=== PATIENT | male | born 1995 | race Hispanic/Latino ===

== ENCOUNTER 2020-06-09 12:10 | Emergency (ER) | payer OTHER ==
[2020-06-09] MEDS ORDERED: HYDROCODONE/CHLORPHEN 5 ML/OSYR ONE (13:59)
[2020-06-09] MEDS ORDERED: ACETAMINOPHEN 500 MG TAB ONE (13:59)
--- NOTE | 2020-06-09 15:10 | ER ---
Nurse's Notes [facility] Name: Niels Butts Age: 24 yrs Sex: Male : 1995 Arrival Date: 06/09/2020 Time: 12:11 Bed 8 Private MD: Diagnosis: Streptococcal pharyngitis Presentation: 06/09 12:33 Chief complaint: Patient states: Slight cough for 3 days. Congestion. body aches since ll1 yesterday. No fever at home. Coronavirus screen: Client denies travel out of the [place] in the last 14 days. congestion, cough unrelated to allergies, difficulty breathing, fatigue, muscle pain, runny nose, sore throat, Client presents with at least one sign or symptom that may indicate coronavirus-19. Standard/surgical mask placed on the client. Ebola Screen: Patient denies travel to an Ebola-affected area in the 21 days before illness onset. Risk Assessment: Do you want to hurt yourself or someone else? Patient reports no desire to harm self or others. Onset of symptoms was June 07, 2020. 12:33 Method Of Arrival: Ambulatory ll1 12:33 Acuity: KATELYNN 3 ll1 14:44 Initial Sepsis Screen: Does the patient meet any 2 criteria? No. Patient's initial hb sepsis screen is negative. Does the patient have a suspected source of infection? No. Patient's initial sepsis screen is negative. Historical: - Allergies: 12:32 No Known Allergies; ll1 - PMHx: 12:32 Asthma; ll1 - PSHx: 12:32 None; ll1 - Immunization history:: Flu vaccine is up to date. - Social history:: Smoking status: Patient/guardian denies using tobacco, Patient uses alcohol, only on a social basis. Patient/guardian denies using street drugs. Screenin:15 Abuse screen: Denies threats or abuse. Denies injuries from another. Nutritional hb screening: No deficits noted. Tuberculosis screening: No symptoms or risk factors identified. Fall Risk None identified. Assessment: 14:00 General: Appears in no apparent distress. Behavior is calm, cooperative. Pain: Pain hb currently is 3 out of 10 on a pain scale. Neuro: Level of Consciousness is awake, alert, obeys commands, Oriented to person, place, time, situation. Cardiovascular: Capillary refill < 3 seconds Patient's skin is warm and dry. Respiratory: Respiratory effort is even, unlabored, Respiratory pattern is regular, symmetrical. GI: No signs and/or symptoms were reported involving the gastrointestinal system. : No signs and/or symptoms were reported regarding the genitourinary system. EENT: No signs and/or symptoms were reported regarding the EENT system. Derm: Skin is pink, warm \T\ dry. Musculoskeletal: No signs and/or symptoms reported regarding the musculoskeletal system. 15:00 Reassessment: Patient appears in no apparent distress at this time. Patient and/or hb family updated on plan of care and expected duration. Pain level reassessed. Patient is alert, oriented x 3, equal unlabored respirations, skin warm/dry/pink. Vital Signs: 12:33 BP 135 / 89; Pulse 97; Resp 18; Temp 100.2; Pulse Ox 98% ; Weight 124.74 kg; Height 5 ll1 ft. 9 in. (175.26 cm); Pain 3/10; 15:00 BP 132 / 82; Pulse 92; Resp 17; Pulse Ox 99% on R/A; hb 12:33 Body Mass Index 40.61 (124.74 kg, 175.26 cm) ll1 ED Course: 12:11 Patient arrived in ED. fj1 12:32 Arm band placed on Patient notified of wait time. ll1 12:36 Triage completed. ll1 13:03 Clay Valencia NP is PHCP. pm1 13:03 Pratima Medina MD is Attending Physician. pm1 13:43 Catia Bae, IRINA is Primary Nurse. hb 14:02 CXR XRAY Sent. hb 14:15 Patient has correct armband on for positive identification. Bed in low position. Call hb light in reach. Side rails up X 1. 14:15 No provider procedures requiring assistance completed. Patient did not have IV access hb during this emergency room visit. 14:41 CXR XRAY In Process Unspecified. EDMS Administered Medications: 13:54 Drug: Tussionex Pennkinetic ER 5 ml Route: PO; hb 14:44 Follow up: Response: No adverse reaction hb 13:55 Drug: Tylenol 1000 mg Route: PO; hb 14:44 Follow up: Response: No adverse reaction hb 15:33 Drug: Rocephin (cefTRIAXone) 1 grams Route: IM; Site: right deltoid; hb 15:48 Follow up: Response: No adverse reaction hb 15:33 Drug: AZITHromycin 500 mg Route: PO; hb 15:49 Follow up: Response: No adverse reaction hb Outcome: 15:10 Discharge ordered by . pm1 15:48 Discharged to home ambulatory. hb 15:48 Condition: stable 15:48 Discharge instructions given to patient, Instructed on discharge instructions, follow up and referral plans. medication usage, Demonstrated understanding of instructions, follow-up care, medications, Prescriptions given X 2. 15:49 Patient left the ED. hb Signatures: Dispatcher [employer] EDMS Clay Valencia NP GREETING CARD WRITER pm1 Catia Bae RN RN Tin Parrish fj1 Ethan Tom RN RN ll1
--- NOTE | 2020-06-09 15:10 | EDPHYS ---
Physician Documentation [facility] Name: Niels Butts Age: 24 yrs Sex: Male : 1995 Arrival Date: 06/09/2020 Time: 12:11 Bed 8 Private MD: ED Physician Pratima Medina HPI: 06/09 13:32 This 24 yrs old Male presents to ER via Ambulatory with complaints of pm1 Productive Cough, BODY ACHES, Congestion. 13:32 The patient or guardian reports cough, with productive sputum. Onset: The pm1 symptoms/episode began/occurred 3 day(s) ago. Severity of symptoms: in the emergency department the symptoms are actually worse, body aches and sputum onset yesterday. Modifying factors: The symptoms are alleviated by nothing, the symptoms are aggravated by nothing. Associated signs and symptoms: Pertinent positives: chest pain, with cough, Pertinent negatives: diarrhea, fever, sore throat, vomiting. The patient has not experienced similar symptoms in the past. 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 COVID swab performed on him by employer today. Historical: - Allergies: 12:32 No Known Allergies; ll1 - PMHx: 12:32 Asthma; ll1 - PSHx: 12:32 None; ll1 - Immunization history:: Flu vaccine is up to date. - Social history:: Smoking status: Patient/guardian denies using tobacco, Patient uses alcohol, only on a social basis. Patient/guardian denies using street drugs. ROS: 13:32 Cardiovascular: Negative for chest pain, palpitations, and edema. pm1 13:32 Abdomen/GI: Negative for abdominal pain, nausea, vomiting, diarrhea, and constipation, Back: Negative for injury and pain, MS/Extremity: Negative for injury and deformity, Skin: Negative for injury, rash, and discoloration. 13:32 Neuro: Negative for headache, weakness, numbness, tingling, and seizure. 13:32 Constitutional: Positive for body aches, Negative for fever, poor PO intake. 13:32 Respiratory: Positive for cough, Negative for shortness of breath, wheezing. Exam: 13:32 Constitutional: This is a well developed, well nourished patient who is awake, alert, pm1 and in no acute distress. Head/Face: Normocephalic, atraumatic. Eyes: Pupils equal round and reactive to light, extra-ocular motions intact. Lids and lashes normal. Conjunctiva and sclera are non-icteric and not injected. Cornea within normal limits. Periorbital areas with no swelling, redness, or edema. ENT: Nares patent. No nasal discharge, no septal abnormalities noted. Tympanic membranes are normal and external auditory canals are clear. Oropharynx with no redness, swelling, or masses, exudates, or evidence of obstruction, uvula midline. Mucous membranes moist. 13:32 Skin: Warm, dry with normal turgor. Normal color with no rashes, no lesions, and no evidence of cellulitis. MS/ Extremity: Pulses equal, no cyanosis. Neurovascular intact. Full, normal range of motion. 13:32 Cardiovascular: Exam negative for acute changes, Rate: normal, Rhythm: regular, Pulses: no pulse deficits are appreciated. 13:32 Respiratory: Exam negative for acute changes, respiratory distress, shortness of breath, wheezing. 13:32 Neuro: Exam negative for acute changes, Orientation: is normal, Mentation: is normal, Motor: is normal, moves all fours, Gait: is steady, at a normal pace, without difficulty. Vital Signs: 12:33 BP 135 / 89; Pulse 97; Resp 18; Temp 100.2; Pulse Ox 98% ; Weight 124.74 kg; Height 5 ll1 ft. 9 in. (175.26 cm); Pain 3/10; 15:00 BP 132 / 82; Pulse 92; Resp 17; Pulse Ox 99% on R/A; hb 12:33 Body Mass Index 40.61 (124.74 kg, 175.26 cm) ll1 MDM: 13:03 Patient medically screened. pm1 14:38 ED course: Patient offered bicillin LA. Patient refused, he would prefer amoxicillin PO.pm1 15:03 Data reviewed: vital signs. Data interpreted: Pulse oximetry: on room air is 98 %. pm1 Interpretation: normal. Counseling: I had a detailed discussion with the patient and/or guardian regarding: the historical points, exam findings, and any diagnostic results supporting the discharge/admit diagnosis, lab results, radiology results, the need for outpatient follow up, to return to the emergency department if symptoms worsen or persist or if there are any questions or concerns that arise at home. 06/09 13:11 Order name: Flu; Complete Time: 14:48 pm1 06/09 13:11 Order name: Strep; Complete Time: 14:35 pm1 06/09 13:11 Order name: CXR XRAY; Complete Time: 15:17 pm1 06/09 13:11 Order name: Droplet/Contact Precautions; Complete Time: 14:02 pm1 06/09 13:11 Order name: Labs collected and sent; Complete Time: 14:02 pm1 06/09 13:11 Order name: O2 Per Protocol; Complete Time: 14:02 pm1 Administered Medications: 13:54 Drug: Tussionex Pennkinetic ER 5 ml Route: PO; hb 14:44 Follow up: Response: No adverse reaction hb 13:55 Drug: Tylenol 1000 mg Route: PO; hb 14:44 Follow up: Response: No adverse reaction hb 15:33 Drug: Rocephin (cefTRIAXone) 1 grams Route: IM; Site: right deltoid; hb 15:48 Follow up: Response: No adverse reaction hb 15:33 Drug: AZITHromycin 500 mg Route: PO; hb 15:49 Follow up: Response: No adverse reaction hb Disposition: 17:52 Co-signature as Attending Physician, Pratima Medina MD. ma2 Disposition: 06/09/20 15:10 Discharged to Home. Impression: Streptococcal pharyngitis. - Condition is Stable. - Discharge Instructions: Strep Throat. - Prescriptions for Tessalon Perles 100 mg Oral Capsule - take 1 capsule by ORAL route every 8 hours As needed; 15 capsule. Zithromax Z- Tyrese 250 mg Oral Tablet - take 1 tablet by ORAL route as directed for 5 days Day 1 - take two (2) tablets one time. Day 2, 3, 4 , 5 take one (1) tablet once daily.; 6 tablet. - Medication Reconciliation Form, Thank You Letter, Antibiotic Education, Prescription Opioid Use form. - Follow up: Emergency Department; When: As needed; Reason: Worsening of condition. Follow up: Private Physician; When: 2 - 3 days; Reason: Recheck today's complaints, Continuance of care, Re-evaluation by your physician. - Problem is new. - Symptoms have improved. Signatures: Dispatcher [employer] EDClay Rosas, GENERAL WAREHOUSE ASSOCIATE GENERAL WAREHOUSE ASSOCIATE pm1 Catia Bae RN RN hb Pratima Medina MD MD ma2 Ethan Tom RN RN ll1 Corrections: (The following items were deleted from the chart) 15:49 15:10 06/09/2020 15:10 Discharged to Home. Impression: Streptococcal pharyngitis. hb Condition is Stable. Forms are Medication Reconciliation Form, Thank You Letter, Antibiotic Education, Prescription Opioid Use. Follow up: Emergency Department; When: As needed; Reason: Worsening of condition. Follow up: Private Physician; When: 2 - 3 days; Reason: Recheck today's complaints, Continuance of care, Re-evaluation by your physician. Problem is new. Symptoms have improved. pm1
--- NOTE | 2020-06-09 15:17 | RAD REPORT ---
EXAM DESCRIPTION: Juju Single View06/09/2020 2:41 pm CLINICAL HISTORY: cough COMPARISON: 2010 FINDINGS: Right base is mildly hazy Left lung appears clear The heart is normal size IMPRESSION: Right base is mildly hazy which may indicate a mild pneumonia
[2020-06-09] MEDS ORDERED: AZITHROMYCIN 250 MG TAB ONE (15:36)
[2020-06-09] MEDS ORDERED: CEFTRIAXONE 1000 MG/VIAL ONE (15:36)
[2020-06-09] MEDS ORDERED: LIDOCAINE 1% MPF 2 ML AMPULE ONE (15:36)
[2020-06-09 15:55] VITALS: BP 135/89; TEMP 100.2; O2SAT 98
== END 2020-06-09 15:49 | disposition home or self-care (01) ==
LOC: ER 12:10
DX: J02.0 Streptococcal pharyngitis (principal)
CPT/HCPCS: 87081; 87804 ×2; 71045; J2001; 96372; 99283

== ENCOUNTER → 2021-05-01 | Emergency (ER) | payer OTHER | LOC: ER 06:19 | DX: S43.402A Unspecified sprain of left shoulder joint, initial encounter (principal) ==

== ENCOUNTER 2022-03-17 19:35 | Emergency (ER) | payer OTHER ==
--- OUTSIDE RECORDS SUMMARY | 2022-03-17 19:37 | XMS REPORT | Continuity of Care Document ---
:1995 Author Organization [facility] t Address [address] [place] [address] Dr. Krishna [address] [place] [id number] Care Team Providers Name Role Phone Manuel Attending Clinician Unavailable Problems This patient has no known problems. Allergies, Adverse Reactions, Alerts This patient has no known allergies or adverse reactions. Medications This patient has no known medications. Procedures This patient has no known procedures. Encounters Start End Encounter Admission Attending Care Care Encounter Source Date/Time Date/Time Type Type Clinicians Facility Department ID 2021-12-[address] [facility] [id number] NPI:[id number] Lizbeth [id number] Results This patient has no known results.
[2022-03-17] MEDS ORDERED: predniSONE 20 MG TAB ONE (20:40)
[2022-03-17] MEDS ORDERED: HYDROCODONE/CHLORPHEN 5 ML/OSYR ONE (20:40)
[2022-03-17] MEDS ORDERED: LEVALBUTEROL 1.25 MG/3 ML NEB ONE (20:41)
--- NOTE | 2022-03-17 21:11 | RAD REPORT ---
EXAM DESCRIPTION: RAD - Chest Pa And Lat (2 Views) - 03/17/2022 8:40 pm CLINICAL HISTORY: COUGH Chest pain. COMPARISON: Chest Single View dated 06/09/2020; CHEST PA AND LAT 2 VIEW dated 01/26/2011; CHEST PA AND LAT 2 VIEW dated 08/05/2010; CHEST PA AND LAT 2 VIEW dated 01/02/2009 FINDINGS: The lungs are clear. The heart is normal in size. No displaced fractures. IMPRESSION: No acute or concerning finding suspected.
--- NOTE | 2022-03-17 21:48 | EDPHYS ---
Physician Documentation [facility] Name: Niels Butts Age: 26 yrs Sex: Male : 1995 Arrival Date: 03/17/2022 Time: 19:37 Bed 13 Private MD: ED Physician Burke Bunch HPI: 03/17 21:24 This 26 yrs old Male presents to ER via Ambulatory with complaints of Cough. rn 21:24 The patient or guardian reports cough, described as moderate, with productive sputum. rn Onset: The symptoms/episode began/occurred 2 day(s) ago. Severity of symptoms: At their worst the symptoms were moderate, in the emergency department the symptoms are unchanged. Modifying factors: The symptoms are alleviated by nebulizer treatment, the symptoms are aggravated by nothing. Associated signs and symptoms: Pertinent negatives: chest pain, fever. The patient has experienced similar episodes in the past. The patient has not recently seen a physician. Historical: - Allergies: 20:06 No Known Allergies; bb - Home Meds: 20:06 Albuterol Nebulizer [Active]; bb - PMHx: 20:06 Asthma; bb - PSHx: 20:06 None; bb - Immunization history:: Pfizer x 3. - Social history:: Smoking status: Patient denies any tobacco usage or history of. - Family history:: not pertinent. - Hospitalizations: : No recent hospitalization is reported. ROS: 21:24 Constitutional: Negative for fever, chills, and weight loss, Eyes: Negative for injury, rn pain, redness, and discharge, Neck: Negative for injury, pain, and swelling, Cardiovascular: Negative for chest pain, palpitations, and edema, Respiratory: + cough and wheezing Abdomen/GI: Negative for abdominal pain, nausea, vomiting, diarrhea, and constipation, Back: Negative for injury and pain, : Negative for injury, bleeding, discharge, and swelling, MS/Extremity: Negative for injury and deformity, Skin: Negative for injury, rash, and discoloration, Neuro: Negative for headache, weakness, numbness, tingling, and seizure. Exam: 21:24 Constitutional: This is a well developed, well nourished patient who is awake, alert, rn and in no acute distress. Persistent coughing, unable to complete full sentence Head/Face: Normocephalic, atraumatic. ENT: No stridor Cardiovascular: Regular rate and rhythm. No pulse deficits. Respiratory: Audible wheezing, no retractions. No increased work of breathing, no retractions or nasal flaring. Abdomen/GI: Soft, non-tender Skin: Warm, dry with normal turgor. Normal color with no rashes, no lesions, and no evidence of cellulitis. MS/ Extremity: Pulses equal, no cyanosis. Neurovascular intact. Full, normal range of motion. Equal circumference. Neuro: Awake and alert, GCS 15 Vital Signs: 20:00 BP 118 / 80; Pulse 91; Resp 20; Pulse Ox 95% on R/A; Pain 0/10; sue 20:04 BP 104 / 71; Pulse 94; Resp 18 S; Temp 98.3(O); Pulse Ox 95% on R/A; Weight 151.95 kg bb (R); Height 5 ft. 0 in. (152.40 cm) (R); Pain 4/10; 21:05 BP 127 / 81; Pulse 78; Resp 16; Pulse Ox 97% on R/A; sue 22:06 BP 117 / 52; Pulse 83; Resp 18; Pulse Ox 99% on R/A; Pain 0/10; sue 20:04 Body Mass Index 65.42 (151.95 kg, 152.40 cm) bb MDM: 20:00 Patient medically screened. rn 21:46 Differential Diagnosis: Bronchitis Upper Respiratory Infection Asthma Exacerbation rn Viral Syndrome Pneumonia. Data reviewed: vital signs, nurses notes, radiologic studies, plain films, and as a result, I will discharge patient. Counseling: I had a detailed discussion with the patient and/or guardian regarding: the historical points, exam findings, and any diagnostic results supporting the discharge/admit diagnosis, radiology results, the need for outpatient follow up, to return to the emergency department if symptoms worsen or persist or if there are any questions or concerns that arise at home. Response to treatment: the patient's symptoms have markedly improved after treatment, and as a result, I will discharge patient. Special discussion: I discussed with the patient/guardian in detail that at this point there is no indication for admission to the hospital. It is understood, however, that if the symptoms persist or worsen the patient needs to return immediately for re-evaluation. ED course: Pt states tested neg for COVID day after symptoms started. . 03/17 20:09 Order name: XRAY Chest Pa And Lat (2 Views); Complete Time: 21:17 rn Administered Medications: 20:51 Drug: predniSONE 60 mg Route: PO; sue 22:05 Follow up: Response: No adverse reaction sue 20:51 Drug: Tussionex Pennkinetic ER (chlorpheniramine-hydrocodone) Suspension 5 ml Route: PO;sue 22:06 Follow up: Response: No adverse reaction sue 20:52 Drug: Xopenex (levalbuterol) 1.25 mg Route: Inhalation; sue 22:05 Follow up: Response: No adverse reaction sue 22:05 Drug: Zithromax (azithromycin) 500 mg Route: PO; sue 22:06 Follow up: Response: No adverse reaction sue Disposition Summary: 03/17/22 21:47 Discharge Ordered Location: Home rn Problem: new rn Symptoms: have improved rn Condition: Stable rn Diagnosis - Unspecified asthma with (acute) exacerbation rn - Cough rn Followup: rn - With: Private Physician - When: As needed - Reason: Recheck today's complaints, Re-evaluation by your physician Discharge Instructions: - Discharge Summary Sheet rn - Asthma, Adult rn - Cough, Adult rn Forms: - Medication Reconciliation Form rn - Thank You Letter rn - Antibiotic e learning coordinator - Prescription Opioid Use rn - Work release form [id number] Prescriptions: - Prednisone 20 mg Oral Tablet - take 3 tablets by ORAL route once daily for 5 days; 15 tablet; Refills: 0, rn Product Selection Permitted - Zithromax Z-Tyrese 250 mg Oral Tablet - take 1 tablet by ORAL route as directed for 5 days Day 1 - take two (2) tablets rn one time. Day 2, 3, 4 , 5 take one (1) tablet once daily.; 6 tablet; Refills: 0, Product Selection Permitted Signatures: Dispatcher [employer] Carissa Rocha RN RN bb Nieto, Roman, MD MD rn O'Farrell, Brenda, RN RN bo
--- NOTE | 2022-03-17 21:48 | ER ---
Nurse's Notes [facility] Name: Niels Butts Age: 26 yrs Sex: Male : 1995 Arrival Date: 03/17/2022 Time: 19:37 Bed 13 Private MD: Diagnosis: Unspecified asthma with (acute) exacerbation;Cough Presentation: 03/17 20:04 Chief complaint: Patient states: he has a runny nose and congestion and started bb coughing 2 days ago the coughing is getting worse he has hx of asthma but states "this feels different" pt used albuterol neb at home. Coronavirus screen: congestion, cough unrelated to allergies, runny nose, Client presents with at least one sign or symptom that may indicate coronavirus-19. Standard/surgical mask placed on the client. Ebola Screen: No symptoms or risks identified at this time. Initial Sepsis Screen: Does the patient meet any 2 criteria? No. Patient's initial sepsis screen is negative. Does the patient have a suspected source of infection? No. Patient's initial sepsis screen is negative. Risk Assessment: Do you want to hurt yourself or someone else? Patient reports no desire to harm self or others. Onset of symptoms was March 15, 2022. 20:04 Method Of Arrival: Ambulatory bb 20:04 Acuity: KATELYNN 3 bb Triage Assessment: 20:53 General: Appears in no apparent distress. Behavior is calm, cooperative. sue 20:54 Pain: Denies pain. sue Historical: - Allergies: 20:06 No Known Allergies; bb - Home Meds: 20:06 Albuterol Nebulizer [Active]; bb - PMHx: 20:06 Asthma; bb - PSHx: 20:06 None; bb - Immunization history:: Pfizer x 3. - Social history:: Smoking status: Patient denies any tobacco usage or history of. - Family history:: not pertinent. - Hospitalizations: : No recent hospitalization is reported. Screenin:53 Abuse screen: Denies threats or abuse. Denies injuries from another. Nutritional sue screening: No deficits noted. Tuberculosis screening: No symptoms or risk factors identified. Fall Risk None identified. Assessment: 20:40 Reassessment: Pt taken, via wc, to x-ray. sue Vital Signs: 20:00 BP 118 / 80; Pulse 91; Resp 20; Pulse Ox 95% on R/A; Pain 0/10; sue 20:04 BP 104 / 71; Pulse 94; Resp 18 S; Temp 98.3(O); Pulse Ox 95% on R/A; Weight 151.95 kg bb (R); Height 5 ft. 0 in. (152.40 cm) (R); Pain 4/10; 21:05 BP 127 / 81; Pulse 78; Resp 16; Pulse Ox 97% on R/A; sue 22:06 BP 117 / 52; Pulse 83; Resp 18; Pulse Ox 99% on R/A; Pain 0/10; sue 20:04 Body Mass Index 65.42 (151.95 kg, 152.40 cm) bb ED Course: 19:37 Patient arrived in ED. bp1 19:56 Carissa Brennan, RN is Primary Nurse. sue 20:00 Burke Bunch MD is Attending Physician. rn 20:06 Triage completed. bb 20:06 Arm band placed on Patient placed in an exam room, on a stretcher, on pulse oximetry. bb 20:42 XRAY Chest Pa And Lat (2 Views) In Process Unspecified. EDMS 20:53 No provider procedures requiring assistance completed. sue 20:54 Bed in low position. Call light in reach. Pulse ox on. NIBP on. sue 22:13 Patient did not have IV access during this emergency room visit. sue Administered Medications: 20:51 Drug: predniSONE 60 mg Route: PO; sue 22:05 Follow up: Response: No adverse reaction sue 20:51 Drug: Tussionex Pennkinetic ER (chlorpheniramine-hydrocodone) Suspension 5 ml Route: PO;sue 22:06 Follow up: Response: No adverse reaction sue 20:52 Drug: Xopenex (levalbuterol) 1.25 mg Route: Inhalation; sue 22:05 Follow up: Response: No adverse reaction sue 22:05 Drug: Zithromax (azithromycin) 500 mg Route: PO; sue 22:06 Follow up: Response: No adverse reaction sue Outcome: 20:54 Condition: stable sue 21:47 Discharge ordered by . rn 22:13 Discharged to home ambulatory. sue 22:13 Discharge instructions given to patient, Instructed on discharge instructions, follow up and referral plans. medication usage, Demonstrated understanding of instructions, follow-up care, medications, Prescriptions given X 2. 22:13 Patient left the ED. sue Signatures: Dispatcher [employer] EDMS Carissa Williamson, Burke Norris RN, MD MD rn [place]ia[place], Brittany bp1 O'Farrell, Brenda, IRINA rogers
[2022-03-17] MEDS ORDERED: AZITHROMYCIN 250 MG TAB ONE (22:04)
[2022-03-17 23:23] VITALS: TEMP 98.3
[2022-03-17 23:25] VITALS: BP 117/52; O2SAT 99
== END 2022-03-17 22:13 | disposition home or self-care (01) ==
LOC: ER 19:35
DX: J45.901 Unspecified asthma with (acute) exacerbation (principal)
CPT/HCPCS: 71046; 99284; J7512

== ENCOUNTER → 2024-01-01 | Emergency (ER) | payer OTHER ==
[~2024-01-01] MED LIST: ACETAMINOPHEN 500 MG TAB ONE; TDAP (DIPHTH,PERTUSS(ACELL),TET VAC) 0.5 ML VIAL IMVAC ONE
--- OUTSIDE RECORDS SUMMARY | 2024-01-01 15:50 | XMS REPORT | Continuity of Care Document ---
Author Name Unknown Address [address] [place] [address] [employer] Address [address] [place] [address]. [address] [place] [address] Care Team Providers Care Rug Underlay Machine Operator Name Role Phone Lizbeth Jackson Attending Clinician Unavailable Encounters Start Date/Time End Date/Time Encounter Type Admission Type Attending Clinicians Care Facility Care Department Encounter ID Source 2021-12-03 11:26:48 Outpatient Lizbeth Jackson [facility] [id number] [facility]
--- NOTE | 2024-01-01 16:54 | ER ---
Nurse's Notes [facility] Name: Niels Butts Age: 28 yrs Sex: Male : 1995 Arrival Date: 01/01/2024 Time: 15:47 Bed 19 Private MD: Diagnosis: Left thumb avulsion laceration Presentation: 01/01 16:00 Chief complaint: Patient states: laceration to thumb on left hand. pt states that he cm10 cut his knife with a board slicer. Tetanus shot was 9 years ago. Coronavirus screen: Vaccine status: Patient reports receiving the 2nd dose of the covid vaccine. Client denies travel out of the [place] in the last 14 days. Ebola Screen: Patient denies travel to an Ebola-affected area in the 21 days before illness onset. No symptoms or risks identified at this time. Initial Sepsis Screen: Does the patient meet any 2 criteria? Does the patient have a suspected source of infection? No. Patient's initial sepsis screen is negative. Risk Assessment: Do you want to hurt yourself or someone else? Patient reports no desire to harm self or others. Onset of symptoms was January 01, 2024. 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 - Social history:: Smoking status: Patient denies any tobacco usage or history of. Screenin:42 [facility] ED Fall Risk Assessment (Adult) History of falling in the last 3 months, kc6 including since admission No falls in past 3 months (0 pts) Confusion or Disorientation No (0 pts) Intoxicated or Sedated No (0 pts) Impaired Gait No (0 pts) Mobility Assist Device Used No (0 pt) Altered Elimination No (0 pt) Score/Fall Risk Level 0 - 2 = Low Risk. Abuse screen: Denies threats or abuse. Denies injuries from another. Nutritional screening: No deficits noted. Tuberculosis screening: No symptoms or risk factors identified. Assessment: 16:42 General: Appears in no apparent distress. comfortable, well groomed, well developed, kc6 Behavior is calm, cooperative, appropriate for age. Pain: Complains of pain in left hand. Neuro: Level of Consciousness is awake, alert, obeys commands, Oriented to person, place, time, situation, Appropriate for age. Cardiovascular: Capillary refill < 3 seconds. Respiratory: Airway is patent Trachea midline Respiratory effort is even, unlabored, Respiratory pattern is regular, symmetrical. GI: No signs and/or symptoms were reported involving the gastrointestinal system. : No signs and/or symptoms were reported regarding the genitourinary system. EENT: No signs and/or symptoms were reported regarding the EENT system. Derm: Skin is pink, warm \T\ dry. Musculoskeletal: No signs and/or symptoms reported regarding the musculoskeletal system. Circulation, motion, and sensation intact. Capillary refill < 3 seconds, Range of motion: intact in all extremities. Injury Description: Avulsion sustained to left thumb is partial was sustained 30-60 minutes ago. Vital Signs: 16:00 BP 130 / 86; Pulse 86; Resp 16; Temp 97.3; Pulse Ox 95% on R/A; Weight 127.01 kg; cm10 Height 5 ft. 10 in. ; Pain 2/10; 16:00 Body Mass Index 40.18 (127.01 kg, 177.8 cm) cm10 16:00 Pain Scale: Adult cm10 ED Course: 15:49 Patient arrived in ED. mr 15:54 [facility] [address] 15:54 Tevin Wallace MD is Attending Physician. jh7 16:02 Triage completed. cm10 16:02 Arm band placed on Patient placed in waiting room. cm10 16:25 Rita Gonzales, RN is Primary Nurse. kc6 16:41 Patient maintains SpO2 saturation greater than 95% on room air. Wound care: to avulsion kc6 located on left thumb was cleaned with Hibiclens, irrigated with normal saline, dressed with 4X4s, surigceal. 16:42 Patient has correct armband on for positive identification. Bed in low position. Call kc6 light in reach. Side rails up X 1. Adult w/ patient. Client placed on continuous cardiac and pulse oximetry monitoring. NIBP monitoring applied. 17:08 No provider procedures requiring assistance completed. Patient did not have IV access kc6 during this emergency room visit. Administered Medications: 16:40 Drug: Tetanus-Diphtheria Toxoid IM Adult 0.5 ml IM once; Provide Vaccine Information kc6 Statement (VIS). 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[employer]; Exp: WedNov 20 2025; Lot #: [id number]; Series: 1 of 1; Patient Consent: Obtained; Date/Time: ; Source Name: Niels Butts; Source Relationship: Self; Address Information: [address] [place] [address]; ; Education: Provided; VIS Presented Date: ; VIS Publication: Tetanus/Diphtheria (Td) Vaccine VIS 02/16/2017 (historic); Vaccine Funding Eligibility: [facility] eligibility not determined/unknown} Route: IM; Site: right deltoid; 17:08 Follow up: Response: No adverse reaction kc6 16:41 Drug: Acetaminophen PO 1000 mg PO once Route: PO; kc6 17:08 Follow up: Response: No adverse reaction kc6 Medication: 17:08 VIS not applicable for this client. kc6 Outcome: 16:53 Discharge ordered by . karen 17:08 Discharged to home ambulatory, with family, kc6 17:08 Condition: good 17:08 Discharge instructions given to patient, Instructed on discharge instructions, follow up and referral plans. medication usage, wound care, Demonstrated understanding of instructions, follow-up care, medications, wound care, Prescriptions given X 2, 17:08 Patient left the ED. kc6 Signatures: Martha Resendez, Reg Reg Aury Hernandeznifer, MASTER OCEAN YACHT MASTER OCEAN YACHT jh7 Rita Gonzales, RN RN kc6 Marta Bloom, RN RN cm10
--- NOTE | 2024-01-01 16:54 | EDPHYS ---
Physician Documentation [facility] Name: Niels Butts Age: 28 yrs Sex: Male : 1995 Arrival Date: 01/01/2024 Time: 15:47 Bed 19 Private MD: ED Physician Tevin Wallace HPI: 01/01 16:00 This 28 yrs old Male presents to ER via Ambulatory with complaints of thumb jh7 laceration. 16:00 Onset: The symptoms/episode began/occurred 2 hour(s) ago. Associated signs and jh7 symptoms: The patient has no apparent associated signs or symptoms. 28-year-old male presents to the ER for left avulsion laceration caused by a knife. He has full range of motion in the ER and reports that his last tetanus was 9 years ago. No significant past medical history.. Historical: - Allergies: 16:02 No Known Allergies; cm10 - PMHx: 16:02 Asthma; cm10 - Immunization history:: Adult Immunizations up to date, Last tetanus immunization: < 10 years ago. - Social history:: Smoking status: Patient denies any tobacco usage or history of. ROS: 16:00 Constitutional: Negative for fever, chills, and weight loss, Eyes: Negative for injury, jh7 pain, redness, and discharge, Neck: Negative for injury, pain, and swelling, Cardiovascular: Negative for chest pain, palpitations, and edema, Respiratory: Negative for shortness of breath, cough, wheezing, and pleuritic chest pain, Abdomen/GI: Negative for abdominal pain, nausea, vomiting, diarrhea, and constipation, Back: Negative for injury and pain, MS/Extremity: Negative for injury and deformity, Neuro: Negative for headache, weakness, numbness, tingling, and seizure, 16:00 Skin: Positive for laceration(s), 16:00 All other systems are negative, Exam: 16:00 Constitutional: This is a well developed, well nourished patient who is awake, alert, jh7 and in no acute distress. Head/Face: Normocephalic, atraumatic. Eyes: Pupils equal round and reactive to light, extra-ocular motions intact. Lids and lashes normal. Conjunctiva and sclera are non-icteric and not injected. Cornea within normal limits. Periorbital areas with no swelling, redness, or edema. Cardiovascular: Regular rate and rhythm with a normal S1 and S2. No gallops, murmurs, or rubs. Normal PMI, no JVD. No pulse deficits. Respiratory: Lungs have equal breath sounds bilaterally, clear to auscultation and percussion. No rales, rhonchi or wheezes noted. No increased work of breathing, no retractions or nasal flaring. MS/ Extremity: Pulses equal, no cyanosis. Neurovascular intact. Full, normal range of motion. Neuro: Awake and alert, GCS 15, oriented to person, place, time, and situation. Motor strength 5/5 in all extremities. Sensory grossly intact. Normal gait. 16:00 Skin: injury, avulsion(s), A moderate sized of the left tip of thumb, Vital Signs: 16:00 BP 130 / 86; Pulse 86; Resp 16; Temp 97.3; Pulse Ox 95% on R/A; Weight 127.01 kg; cm10 Height 5 ft. 10 in. ; Pain 2/10; 16:00 Body Mass Index 40.18 (127.01 kg, 177.8 cm) cm10 16:00 Pain Scale: Adult cm10 MDM: 15:54 Patient medically screened. [facility] 16:45 Differential diagnosis: laceration, avulsion. Data reviewed: vital signs, nurses notes. [facility] I considered the following discharge prescriptions or medication management in the emergency department Medications were administered in the Emergency Department. See MAR. Counseling: I had a detailed discussion with the patient and/or guardian regarding the historical points, exam findings, and any diagnostic results supporting the discharge/admit diagnosis, to return to the emergency department if symptoms worsen or persist or if there are any questions or concerns that arise at home. Response to treatment: the patient's symptoms have mildly improved after treatment. Special discussion: Informed the patient that this injury was a skin avulsion and that sutures were not indicated. Bleeding controlled using Surgicel, gauze, and Coban bandage. Advised for the patient to keep the dressing on for the next 2 days and to let the Surgicel fall off on its own. Keflex prescribed for wound prophylaxis. Advised to monitor for signs and symptoms of infection.. 01/01 16:10 Order name: [facility]. Order: clean wound, gauze, surgicel, coban; Complete Time: 16:40 [facility] Administered Medications: 16:40 Drug: Tetanus-Diphtheria Toxoid IM Adult 0.5 ml IM once; Provide Vaccine Information kc6 Statement (VIS). 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[employer]; Exp: WedNov 20 2025; Lot #: [id number]; Series: 1 of 1; Patient Consent: Obtained; Date/Time: ; Source Name: Niels Butts; Source Relationship: Self; Address Information: [address] [place] [address]; ; Education: Provided; VIS Presented Date: ; VIS Publication: Tetanus/Diphtheria (Td) Vaccine VIS 02/16/2017 (historic); Vaccine Funding Eligibility: [facility] eligibility not determined/unknown} Route: IM; Site: right deltoid; 17:08 Follow up: Response: No adverse reaction kc6 16:41 Drug: Acetaminophen PO 1000 mg PO once Route: PO; kc6 17:08 Follow up: Response: No adverse reaction kc6 Disposition: 19:18 Co-signature as Attending Physician, Tevin Wallace MD I agree with the assessment and kdr plan of care. Disposition Summary: 01/01/24 16:53 Discharge Ordered Notes: Location: Home [facility] Problem: new [facility] Symptoms: have improved [facility] Condition: Stable [facility] Diagnosis - Left thumb avulsion laceration [facility] Followup: [facility] - With: Private Physician - When: 2 - 3 days - Reason: Recheck today's complaints Discharge Instructions: - Discharge Summary Sheet [facility] - Nonsutured Laceration Care [facility] - Deep Skin Avulsion [facility] Forms: - Medication Reconciliation Form [facility] - Thank You Letter [facility] - Antibiotic Education [facility] - Patient Portal Instructions [facility] - Leadership Thank You Letter [facility] Prescriptions: - Cephalexin 500 mg Oral capsule - take 1 capsule ORAL route every 12 hours for 7 days; 14 capsule; Refills: 0, [facility] Product Selection Permitted - Ibuprofen 800 mg Oral Tablet - take 1 tablet ORAL route every 8 hours As needed take with food; 30 tablet; 7 Refills: 0, Product Selection Permitted Signatures: Tevin Wallace MD MD kdr Hadash, Jennifer, FNP FNP [facility] Rita Gonzales RN RN kc6 Wolf, Marta, RN RN cm10
[2024-01-01 17:23] VITALS: BP 130/86; TEMP 97.3; O2SAT 95
== END ==
LOC: ER 15:47
DX: S61.012A Laceration without foreign body of left thumb without damage to nail, initial encounter (principal); Z23 Encounter for immunization
CPT/HCPCS: 90471; 99285

== ENCOUNTER 2024-04-08 06:17 | Emergency (ER) | payer OTHER ==
--- OUTSIDE RECORDS SUMMARY | 2024-04-08 06:20 | XMS REPORT | Continuity of Care Document ---
Author Name Unknown Address [address] [facility] [address] [place] [address] [facility] thconnect Address [address] [address] [address] [place] [address] Care Team Providers Care Supervisor Shuttle Veneering Name Role Phone Hunter Hutchinson Attending Clinician Unavailable Lizbeth Jackson Attending Clinician Unavailable Problems Condition Name Condition Details Condition Category Status Onset Date Resolution Date Last Treatment Date Treating Clinician Comments Source [id number] Scoliosis of thoracolum bar spine, unspecifie d scoliosis type Problem [facility] [id number] Childhood asthma, unspecifie d asthma severity, unspecifie d whether complicate d, unspecifie d whether persistent Problem [facility] [id number] Seasonal allergies Problem [facility] [id number] Moderate episode of recurrent major depressive disorder Problem [facility] [id number] KIRILL (generaliz ed anxiety disorder) Problem [facility] [id number] Sciatica of right side Problem [facility] [id number] Obesity, Class III, BMI 40-49.9 (morbid obesity) Problem [facility] Social History Social Habit Start Date Stop Date Quantity Comments Source History of Tobacco Use [facility] Sex Assigned At [facility] Smoking Status Start Date Stop Date Source Never Smoker [facility] Light tobacco smoker 2024-01-11 00:00:00 [facility] Medications Ordered Medication Name Filled Medication Name Start Date Stop Date Current Medication? Ordering Clinician Indication Dosage Frequency Signature (SIG) Comments Components Source Bromphenira mine-Phenyl ephrine 4-10 MG/5ML Bromphenira mine-Phenyl ephrine 4-10 MG/5ML 03-22 00:00: 00 No 5{ml_as _needed } 6xD Bromphenir amine-Phen ylephrine 4-10 MG/5ML Toradol (Ketorolac) Toradol (Ketorolac) 06-13 00:00: 00 No 60mg [facility] Cephalexin 500 MG Cephalexin 500 MG No 1{capsu le} BID Cephalexin 500 MG Escitalopra m Oxalate 10 MG Escitalopra m Oxalate 10 MG No 1{table t} QD Escitalopr am Oxalate 10 MG Vital Signs Vital Name Observation Time Observation Value Comments S ource height 2024-03-22 08:20:00 68.5 [in_i] Comm on [facility] weight 2024-03-22 08:20:00 293.6 [lb_av] Co mmon [facility] temperature 2024-03-22 08:20:00 97.5 [degF] Com mon [facility] bmi 2024-03-22 08:20:00 43.99 kg/m2 Comm on [facility] oximetry 2024-03-22 08:20:00 97 % Commo n [facility] respiratory rate 2024-03-22 08:20:00 16 /min [facility] blood pressure systolic 2024-03-22 08:20:00 118 mm[Hg] [facility] blood pressure diastolic 2024-03-22 08:20:00 76 mm[Hg] [facility] height 2024-01-11 15:00:00 68.5 [in_i] Comm on [facility] weight 2024-01-11 15:00:00 298.0 [lb_av] Co mmon [facility] temperature 2024-01-11 15:00:00 97.9 [degF] Com mon [facility] bmi 2024-01-11 15:00:00 44.65 kg/m2 Comm on [facility] oximetry 2024-01-11 15:00:00 97 % Commo n [facility] respiratory rate 2024-01-11 15:00:00 16 /min [facility] blood pressure systolic 2024-01-11 15:00:00 132 mm[Hg] [facility] blood pressure diastolic 2024-01-11 15:00:00 88 mm[Hg] [facility] Encounters Start Date/Time End Date/Time Encounter Type Admission Type Attending [facility] Facility Care Department Encounter ID Source 2024-01-13 14:37:01 Outpatient Hunter Hutchinson [facility] [id number] [facility] 2024-01-11 15:01:00 Outpatient Hunter Hutchinson [facility] [id number] [facility] 2024-01-07 14:11:00 Outpatient [facility] [id number] [facility] 2021-12-03 11:26:48 Outpatient Lizbeth Jackson [facility] [id number] [facility] 2024-03-22 00:00:00 2024-03-22 00:00:00 OFFICE VISIT ESTAB PT LEVEL 4 [facility] [id number] [facility] 2024-01-11 00:00:00 2024-01-11 00:00:00 PREV VISIT NEW AGE 18-39 [facility] [id number] [facility]
[2024-04-08] MEDS ORDERED: IBUPROFEN 400 MG TAB ONE (06:50)
[2024-04-08] MEDS ORDERED: BENZONATATE 100 MG CAP PO ONE ×2 (06:50→07:04)
[2024-04-08] MEDS ORDERED: AZITHROMYCIN 250 MG TAB ONE (06:53)
[2024-04-08] MEDS ORDERED: CEFTRIAXONE 1000 MG/VIAL ONE (06:53)
[2024-04-08] MEDS ORDERED: GUAIFENESIN/DM 5 ML UCUP ONE (06:57)
--- NOTE | 2024-04-08 07:03 | EDPHYS ---
Physician Documentation [facility] Name: Niels Butts Age: 28 yrs Sex: Male : 1995 Arrival Date: 04/08/2024 Time: 06:17 Bed 12 Private MD: ED Physician Patrick Ribeiro HPI: 04/08 06:56 This 28 yrs old Male presents to ER via Ambulatory with complaints of Cough, sp4 Shortness Of Breath. 06:56 28-year-old male with history of asthma and anxiety also morbid obesity presents with sp4 acute onset 3 days shortness of breath call sputum bilateral earache sore throat. . Historical: - Allergies: 06:26 No Known Allergies; kb3 - Home Meds: 06:26 Lexapro 10 mg Oral tablet daily [Active]; kb3 - PMHx: 06:26 Asthma; Anxiety; kb3 - PSHx: 06:26 None; kb3 - Immunization history:: Adult Immunizations up to date, Client reports receiving the 2nd dose of the Covid vaccine, Last tetanus immunization: up to date. - Infectious Disease History:: Denies. - Social history:: Smoking status: Patient reports the use of cigarette tobacco products, denies chronic smoking, but will smoke occasionally. - Family history:: not pertinent. ROS: 06:56 Constitutional: Negative for fever, chills, and weight loss, positive sore throat, sp4 positive bilateral earache, positive shortness of breath positive cough positive sputum 06:56 All other systems are negative, Exam: 06:56 Constitutional: This is a well developed, well nourished patient who is awake, alert, sp4 and in no acute distress. Head/Face: Normocephalic, atraumatic. Eyes: Pupils equal round and reactive to light, extra-ocular motions intact. Lids and lashes normal. Conjunctiva and sclera are not injected. Cornea within normal limits. Periorbital areas with no swelling, redness, or edema. ENT: Nares patent. No nasal discharge, no septal abnormalities noted. Bilateral tympanic membrane erythema and opacification, positive for bilateral pharyngeal erythema and irritation. Neck: Trachea midline, no thyromegaly or masses palpated, and no cervical lymphadenopathy. Supple, full range of motion without nuchal rigidity, or vertebral point tenderness. Chest/axilla: Normal chest wall appearance and motion. Nontender with no deformity. No lesions are appreciated. Cardiovascular: Regular rate and rhythm with a normal S1 and S2. No gallops, murmurs, or rubs. Normal PMI, no JVD. No pulse deficits. Respiratory: Lungs have equal breath sounds bilaterally, clear to auscultation and percussion. No rales, rhonchi or wheezes noted. No increased work of breathing, no retractions or nasal flaring. Abdomen/GI: Soft, with normal bowel sounds. No distension or tympany. No guarding or rebound. No evidence of tenderness throughout. Back: No spinal tenderness. No costovertebral tenderness. Skin: Warm, dry with normal turgor. Normal color with no rashes, no lesions, and no evidence of cellulitis. MS/ Extremity: Pulses equal, no cyanosis. Neurovascular intact. Full, normal range of motion. Neuro: Awake and alert, GCS 15, oriented to person, place, time, and situation. Cranial nerves II-XII grossly intact. Motor strength 5/5 in all extremities. Sensory grossly intact. Psych: Awake, alert, with orientation to person, place and time. Behavior, mood, and affect are within normal limits Vital Signs: 06:23 BP 135 / 79; Pulse 92; Resp 22; Temp 97.8; Pulse Ox 96% ; Weight 122.47 kg; Height 5 kb3 ft. 10 in. ; Pain 6/10; 06:23 Body Mass Index 38.74 (122.47 kg, 177.8 cm) kb3 06:23 Pain Scale: Adult kb3 [place] Coma Score: 06:56 Eye Response: spontaneous(4). Motor Response: obeys commands(6). Verbal Response: sp4 oriented(5). Total: 15. MDM: 06:41 Patient medically screened. sp4 07:09 ED course: EXAM DESCRIPTION: RAD - Chest Pa And Lat (2 Views) - 04/08/2024 6:48 am sp4 CLINICAL HISTORY: CONGESTION COMPARISON: Chest Pa And Lat (2 Views) dated 03/17/2022; Chest Single View dated 06/09/2020; CHEST PA AND LAT 2 VIEW dated 01/26/2011; CHEST PA AND LAT 2 VIEW dated 08/05/2010 FINDINGS: Lines: None. Lungs: No evidence of edema or pneumonia. Pleural: No significant pleural effusions or pneumothorax. Cardiac: The heart size is within normal limits. Mediastinum: Within normal limits. Bones: No acute fractures. Other: None IMPRESSION: No acute cardiopulmonary disease.. 07:10 Differential Diagnosis: Bronchitis Influenza Upper Respiratory Infection. Data sp4 reviewed: vital signs, nurses notes, lab test result(s), radiologic studies, plain films. 04/08 06:30 Order name: Basic Metabolic Panel; Complete Time: 07:34 sp4 04/08 06:30 Order name: CBC with Diff; Complete Time: 07:26 sp4 04/08 06:30 Order name: LFT's; Complete Time: 07:34 sp4 04/08 06:31 Order name: Chest Pa And Lat (2 Views) XRAY; Complete Time: 07:26 sp4 04/08 06:30 Order name: IV Saline Lock; Complete Time: 07:09 sp4 04/08 06:30 Order name: Labs collected and sent; Complete Time: 07:10 sp4 04/08 06:30 Order name: O2 Per Protocol; Complete Time: 07:12 sp4 04/08 06:30 Order name: O2 Sat Monitoring; Complete Time: 07:12 sp4 Administered Medications: 07:11 Drug: Tessalon Perle PO 200 mg PO once Route: PO; kb3 07:11 Drug: Rocephin (cefTRIAXone) IM 1 grams IM once Route: IM; Site: left ventrogluteal; kb3 07:11 Drug: AZITHromycin PO 500 mg PO once Route: PO; kb3 07:11 Drug: Ibuprofen PO 800 mg PO once Route: PO; kb3 07:12 Drug: Dextromethorphan-Guaifenesin PO Liquid 10 mg-100 mg/5 mL 10 ml PO once Route: PO; kb3 Disposition Summary: 04/08/24 07:28 Discharge Ordered Notes: Location: Home(04/08/24 07:28) viki Problem: new(04/08/24 07:28) viki Symptoms: have improved(04/08/24 07:28) viki Condition: Stable(04/08/24 07:28) viki Diagnosis - Acute upper respiratory infection, unspecified viki - Cough viki - Elevated white blood cell count viki - Obesity, unspecified viki Followup: viki - With: Private Physician - When: 2 - 3 days - Reason: Recheck today's complaints, Continuance of care, Re-evaluation by your physician Discharge Instructions: - Discharge Summary Sheet viki - Upper Respiratory Infection, Adult viki - Cool Mist Vaporizer viki - Upper Respiratory Infection, Adult, [id number] viki - Cough, Adult, Mqhc-gw-Lint viki - Cough, Adult viki Forms: - Medication Reconciliation Form viki - Antibiotic Education viki - Prescription Opioid Use viki - Patient Portal Instructions viki - Leadership Thank You Letter [facility] Prescriptions: - Bromfed DM 2-30-10 mg/5 mL Oral syrup - administer 10 milliliter ORAL route every 6 hours as needed for sinus symptoms; viki 180 milliliter; Refills: 0, Product Selection Permitted - albuterol sulfate 90 mcg/actuation Inhalation HFA Aerosol Inhaler - inhale 2 inhalation INHALATION route 6 times per day as needed for shortness of viki breath or wheezing; 1 unit; Refills: 0, Product Selection Permitted - Tessalon Perles 100 mg Oral capsule - take 2 capsule ORAL route every 8 hours As needed; 30 capsule; Refills: 0, viki Product Selection Permitted - Zithromax 500 mg Oral Tablet - take 1 tablet ORAL route once daily for 5 days; 5 tablet; Refills: 0, Product viki Selection Permitted Signatures: Dispatcher [employer] Patrick Gaines MD MD cha Bradberry, Kelly, IRINA RN kb3 Eliot Pina MD MD sp4 Corrections: (The following items were deleted from the chart) 06:28 06:26 Home Meds: Albuterol Inhl; kb3 kb3 06:31 06:31 Chest Pa And Lat (2 Views)+RAD.RAD.[email or web address] ordered. EDTN EDMS 07:10 07:02 Home sp4 sp4 07:10 07:02 new sp4 sp4 07:10 07:02 have improved sp4 sp4 07:10 07:02 Stable sp4 sp4 07:10 07:02 Acute bronchitis, unspecified sp4 sp4 07:10 07:02 Acute suppurative otitis media without spontaneous rupture of ear drum, bilateral sp4 sp4
--- NOTE | 2024-04-08 07:03 | ER ---
Nurse's Notes [facility] Name: Niels Butts Age: 28 yrs Sex: Male : 1995 Arrival Date: 04/08/2024 Time: 06:17 Bed 12 Private MD: Diagnosis: Acute upper respiratory infection, unspecified;Cough;Elevated white blood cell count;Obesity, unspecified Presentation: 04/08 06:23 Chief complaint: Patient states: Cough, congestion, right ear pain x4 days. Coronavirus kb3 screen: Vaccine status: Patient reports receiving the 2nd dose of the covid vaccine. Client denies travel out of the [place] in the last 14 days. Ebola Screen: Patient negative for fever greater than or equal to 101.5 degrees Fahrenheit, and additional compatible Ebola Virus Disease symptoms Patient denies exposure to infectious person. Patient denies travel to an Ebola-affected area in the 21 days before illness onset. Initial Sepsis Screen: Does the patient meet any 2 criteria? No. Patient's initial sepsis screen is negative. Does the patient have a suspected source of infection? No. Patient's initial sepsis screen is negative. Risk Assessment: Do you want to hurt yourself or someone else? Patient reports no desire to harm self or others. Onset of symptoms was April 02, 2024. 06:23 Method Of Arrival: Ambulatory 3 06:23 Acuity: KATELYNN 3 kb3 Triage Assessment: 06:26 General: Appears in no apparent distress. uncomfortable, Behavior is calm, cooperative. kb3 Pain: Complains of pain in head and chest Pain does not radiate. Pain currently is 6 out of 10 on a pain scale. Quality of pain is described as burning, pressure. Respiratory: Reports cough that is pain with cough Onset: The symptoms/episode began/occurred gradually, the patient has moderate shortness of breath. Historical: - Allergies: 06: No Known Allergies; kb3 - Home Meds: : Lexapro 10 mg Oral tablet daily [Active]; kb3 - PMHx: : Asthma; Anxiety; kb3 - PSHx: 06:26 None; kb3 - Immunization history:: Adult Immunizations up to date, Client reports receiving the 2nd dose of the Covid vaccine, Last tetanus immunization: up to date. - Infectious Disease History:: Denies. - Social history:: Smoking status: Patient reports the use of cigarette tobacco products, denies chronic smoking, but will smoke occasionally. - Family history:: not pertinent. Screenin:00 [facility] ED Fall Risk Assessment (Adult) History of falling in the last 3 months, kb3 including since admission No falls in past 3 months (0 pts) Confusion or Disorientation No (0 pts) Intoxicated or Sedated No (0 pts) Impaired Gait No (0 pts) Mobility Assist Device Used No (0 pt) Altered Elimination No (0 pt) Score/Fall Risk Level 0 - 2 = Low Risk Oriented to surroundings. Abuse screen: Denies threats or abuse. Denies injuries from another. Nutritional screening: No deficits noted. Tuberculosis screening: No symptoms or risk factors identified. Assessment: 07:00 General: Appears in no apparent distress. Behavior is calm, cooperative. kb3 07:00 Cardiovascular:. Respiratory: Airway is patent Respiratory effort is even, unlabored, kb3 Breath sounds are clear. 07:51 Reassessment: Patient appears in no apparent distress at this time. Patient and/or hb family updated on plan of care and expected duration. Pain level reassessed. Patient is alert, oriented x 3, equal unlabored respirations, skin warm/dry/pink. Vital Signs: 06:23 BP 135 / 79; Pulse 92; Resp 22; Temp 97.8; Pulse Ox 96% ; Weight 122.47 kg; Height 5 kb3 ft. 10 in. ; Pain 6/10; 06:23 Body Mass Index 38.74 (122.47 kg, 177.8 cm) kb3 06:23 Pain Scale: Adult kb3 [place] Coma Score: 06:56 Eye Response: spontaneous(4). Motor Response: obeys commands(6). Verbal Response: sp4 oriented(5). Total: 15. ED Course: 06:19 Patient arrived in ED. jj6 06:26 Triage completed. kb3 06:26 Arm band placed on right wrist. Patient placed in an exam room. kb3 06:30 Eliot Pina MD is Attending Physician. sp4 06:49 Chest Pa And Lat (2 Views) XRAY In Process Unspecified. EDMS 07:00 Patient has correct armband on for positive identification. Bed in low position. Call kb3 light in reach. Provided Education on: Plan of care. 07:00 No provider procedures requiring assistance completed. kb3 07:10 Basic Metabolic Panel Sent. bc6 07:10 CBC with Diff Sent. bc6 07:10 LFT's Sent. bc6 07:10 Initial lab(s) drawn, by me, sent to lab. Inserted saline lock: 22 gauge in left bc6 antecubital area, using aseptic technique. Blood collected. 07:15 Attending Physician role handed off by Eliot Pina MD [facility] 07:15 Patrick Ribeiro MD is Attending Physician. [facility] 07:51 IV discontinued, intact, bleeding controlled, No redness/swelling at site. Pressure hb dressing applied. Administered Medications: 07:11 Drug: Tessalon Perle PO 200 mg PO once Route: PO; kb3 07:11 Drug: Rocephin (cefTRIAXone) IM 1 grams IM once Route: IM; Site: left ventrogluteal; kb3 07:11 Drug: AZITHromycin PO 500 mg PO once Route: PO; kb3 07:11 Drug: Ibuprofen PO 800 mg PO once Route: PO; kb3 07:12 Drug: Dextromethorphan-Guaifenesin PO Liquid 10 mg-100 mg/5 mL 10 ml PO once Route: PO; kb3 Medication: 07:00 VIS not applicable for this client. kb3 Outcome: 07:02 Discharge ordered by . sp4 07:28 Discharge ordered by . [facility] 07:51 Discharged to home ambulatory, hb 07:51 Condition: stable 07:51 Discharge instructions given to patient, Instructed on discharge instructions, follow up and referral plans. medication usage, Demonstrated understanding of instructions, follow-up care, medications, Prescriptions given X 4, 07:51 Patient left the ED. hb Signatures: Dispatcher [employer] [place] Patrick Ribeiro MD MD cha Baxter, Heather, RN RN Mariam Blackmon jj6 Norah Hagan RN RN kb3 [facility] Eliot Pina MD MD sp4 Corrections: (The following items were deleted from the chart) 06:28 06:26 Home Meds: Albuterol Inhl; kb3 kb3
--- NOTE | 2024-04-08 07:05 | RAD REPORT ---
EXAM DESCRIPTION: RAD - Chest Pa And Lat (2 Views) - 04/08/2024 6:48 am CLINICAL HISTORY: CONGESTION COMPARISON: Chest Pa And Lat (2 Views) dated 03/17/2022; Chest Single View dated 06/09/2020; CHEST PA A ND LAT 2 VIEW dated 01/26/2011; CHEST PA AND LAT 2 VIEW dated 08/05/2010 FINDINGS: Lines: None. Lungs: No evidence of edema or pneumonia. Pleural: No significant pleural effusions or pneumothorax. Cardiac: The heart size is within normal limits. Mediastinum: Within normal limits. Bones: No acute fractures. Other: None IMPRESSION: No acute cardiopulmonary disease.
[2024-04-08 07:14] LABS: Absolute Basophils 0.1 K/uL (0-0.5); Absolute Eosinophils 0.2 K/uL (0-0.5); Absolute Lymphocytes (CBC) 2.4 K/uL (0.7-4.9); Absolute Monocytes 1.4 K/uL (0.1-1.3); Absolute Neutrophil 10.8 K/uL (1.8-8.0); Basophils % 0.6 % (0-1.3); Eosinophils % 1.5 % (0-4.4); Hematocrit 43.6 % (39.6-49.0); Hemoglobin 14.8 g/dL (13.6-17.9); Lymphocytes % 16.1 % (15.3-44.8); MCH 30.5 pg (27.0-35.0); MCHC 33.9 g/dL (32.0-36.0); MCV 89.9 fL (80-100); MPV 8.5 fL (7.6-11.3); Monocytes % 9.7 % (3.3-12.3); Neutrophils % 72.1 % (41.7-73.7); Platelets 330 thou/uL (152-406); RBC Red Blood Cell Count 4.86 M/uL (4.33-5.43); Red Cell Distribution Width 13.3 % (12.1-15.2)
[2024-04-08 07:31] LABS: ALT/SGPT 29 U/L (16-61); AST/SGOT < 10 U/L (15-37); Albumin 3.5 g/dL (3.4-5.0); Albumin/Globulin Ratio 0.8 (1.1-1.8); Alkaline Phosphatase 81 U/L (45-117); Anion Gap 4.7 mEq/L (5.0-15.0); BUN Blood Urea Nitrogen 12 mg/dL (7-18); Bicarbonate 29 mEq/L (21-32); Bilirubin Direct 0.2 mg/dL (0-0.2); Bilirubin Indirect, Calculated 0.9 mg/dL (0.2-0.8); Bilirubin Total 1.1 mg/dL (0.2-1.0); Globulin 4.3 g/dL (2.3-3.5); Glomerular Filtration Rate 127 ml/min (=/>90); Glucose Level 112 mg/dL (74-106); Potassium 3.7 mEq/L (3.5-5.1); Protein, Total 7.8 g/dL (6.4-8.2); Sodium Level 136 mEq/L (136-145)
[2024-04-08 08:37] VITALS: BP 135/79; TEMP 97.8; O2SAT 96
== END 2024-04-08 07:51 | disposition home or self-care (01) ==
LOC: ER 06:17
DX: J06.9 Acute upper respiratory infection, unspecified (principal); D72.829 Elevated white blood cell count, unspecified; E66.9 Obesity, unspecified; Z68.38 Body mass index [BMI] 38.0-38.9, adult; F17.210 Nicotine dependence, cigarettes, uncomplicated
CPT/HCPCS: 85025; 80048; 36415; 80076; 71046; 96372; 99284; J0696

== ENCOUNTER 2025-01-31 12:08 | Emergency (ER) | payer OTHER ==
--- OUTSIDE RECORDS SUMMARY | 2025-01-31 12:12 | XMS REPORT | Continuity of Care Document ---
Author Name Unknown Address [address] [facility] [address] [place] [address] Organization [facility] [place] Address [address] [facility] [address] [place] [address] Care Team Providers Care Editorial Writer Name Role Phone Hunter Hutchinson Attending Clinician Unavailable Lizbeth Jackson Attending Clinician Unavailable Problems Condition Name Condition Details Condition Category Status Onset Date Resolution Date Last Treatment Date Treating Clinician Comments Source [id number] Scoliosis of thoracolum bar spine, unspecifie d scoliosis type Problem [facility] [id number] Childhood asthma, unspecifie d asthma severity, unspecifie d whether complicate d, unspecifie d whether persistent Problem [facility] [id number] Seasonal allergies Problem [facility] [id number] Moderate episode of recurrent major depressive disorder Problem [facility] [id number] KIRILL (generaliz ed anxiety disorder) Problem [facility] [id number] Sciatica of right side Problem [facility] [id number] Obesity, Class III, BMI 40-49.9 (morbid obesity) Problem [facility] Social History Social Habit Start Date Stop Date Quantity Comments Source History of Tobacco Use [facility] Sex Assigned At [facility] Smoking Status Start Date Stop Date Source Never Smoker [facility] Light tobacco smoker 2024-01-11 00:00:00 [facility] Medications Ordered Medication Name Filled Medication Name Start Date Stop Date Current Medication? Ordering Clinician Indication Dosage Frequency Signature (SIG) Comments Components Source Bromphenira mine-Phenyl ephrine 4-10 MG/5ML Bromphenira mine-Phenyl ephrine 4-10 MG/5ML 03-22 00:00: 00 No 5{ml_as _needed } 6xD Bromphenir amine-Phen ylephrine 4-10 MG/5ML Toradol (Ketorolac) Toradol (Ketorolac) 06-13 00:00: 00 No 60mg [facility] Cephalexin 500 MG Cephalexin 500 MG No 1{capsu le} BID Cephalexin 500 MG Escitalopra m Oxalate 10 MG Escitalopra m Oxalate 10 MG No 1{table t} QD Escitalopr am Oxalate 10 MG Vital Signs Vital Name Observation Time Observation Value Comments S ource height 2024-03-22 08:20:00 68.5 [in_i] Comm on [facility] weight 2024-03-22 08:20:00 293.6 [lb_av] Co mmon [facility] temperature 2024-03-22 08:20:00 97.5 [degF] Com mon [facility] bmi 2024-03-22 08:20:00 43.99 kg/m2 Comm on [facility] oximetry 2024-03-22 08:20:00 97 % Commo n [facility] respiratory rate 2024-03-22 08:20:00 16 /min [facility] blood pressure systolic 2024-03-22 08:20:00 118 mm[Hg] [facility] blood pressure diastolic 2024-03-22 08:20:00 76 mm[Hg] [facility] height 2024-01-11 15:00:00 68.5 [in_i] Comm on [facility] weight 2024-01-11 15:00:00 298.0 [lb_av] Co mmon [facility] temperature 2024-01-11 15:00:00 97.9 [degF] Com mon [facility] bmi 2024-01-11 15:00:00 44.65 kg/m2 Comm on [facility] oximetry 2024-01-11 15:00:00 97 % Commo n [facility] respiratory rate 2024-01-11 15:00:00 16 /min [facility] blood pressure systolic 2024-01-11 15:00:00 132 mm[Hg] [facility] blood pressure diastolic 2024-01-11 15:00:00 88 mm[Hg] [facility] Encounters Start Date/Time End Date/Time Encounter Type Admission Type Attending [facility] Facility Care Department Encounter ID Source 2024-01-13 14:37:01 Outpatient Hunter Hutchinson [facility] [id number] [facility] 2024-01-11 15:01:00 Outpatient Hunter Hutchinson [facility] [id number] [facility] 2024-01-07 14:11:00 Outpatient [facility] [id number] [facility] 2021-12-03 11:26:48 Outpatient Lizbeth Jackson [facility] [id number] [facility] 2024-03-22 00:00:00 2024-03-22 00:00:00 OFFICE VISIT ESTAB PT LEVEL 4 [facility] [id number] [facility] 2024-01-11 00:00:00 2024-01-11 00:00:00 PREV VISIT NEW AGE 18-39 [facility] [id number] [facility]
[2025-01-31 14:13] LABS: Influenza A Ag Negative
[2025-01-31 14:14] LABS: Influenza B Ag Negative; SARS-CoV-2 Antigen Rapid Res Negative (Negative)
--- NOTE | 2025-01-31 14:42 | RAD REPORT ---
Procedure: Chest Single View HISTORY: Cough COMPARISON: 2019 FINDINGS: The lungs appear clear of acute infiltrate. No significant pleural effusion noted. The heart is normal size. IMPRESSION: No acute abnormality is displayed.
[2025-01-31] MEDS ORDERED: HYDROCODONE/CHLORPHEN 5 ML/OSYR ONE (14:52)
[2025-01-31] MEDS ORDERED: IPRATROPIUM BROM 0.5MG/2.5ML ONE (14:52)
[2025-01-31] MEDS ORDERED: LEVALBUTEROL 1.25 MG/3 ML NEB ONE (14:53)
[2025-01-31] MEDS ORDERED: levoFLOXacin 750 MG TAB ONE (14:53)
[2025-01-31] MEDS ORDERED: predniSONE 20 MG TAB ONE (14:53)
--- NOTE | 2025-01-31 15:16 | EDPHYS ---
Physician Documentation [facility] Name: Niels Butts Age: 29 yrs Sex: Male : 1995 Arrival Date: 01/31/2025 Time: 12:08 Bed 12 Private MD: ED Physician Patrick Ribeiro HPI: 01/31 15:04 This 29 yrs old Male presents to ER via Ambulatory with complaints of Cough, viki Body Aches, Chest Congestion, Nasal Congestion. 15:04 The patient or guardian reports airway noise, cough, difficulty breathing, flu viki symptoms, arthralgias. Onset: The symptoms/episode began/occurred 3 day(s) ago. Severity of symptoms: At their worst the symptoms were mild, moderate, in the emergency department the symptoms are unchanged. Modifying factors: The symptoms are alleviated by cool environment, the symptoms are aggravated by exertion, talking. Associated signs and symptoms: Pertinent positives: fever, rhinorrhea, sore throat. The patient has experienced similar episodes in the past, several times. Historical: - Allergies: 13:16 No Known Allergies; iw - PMHx: 13:16 Anxiety; Asthma; iw - PSHx: 13:16 None; iw - Immunization history:: Adult Immunizations up to date. - Infectious Disease History:: Denies. - Social history:: Smoking status: Patient reports the use of cigarette tobacco products, denies chronic smoking, but will smoke occasionally. ROS: 15:05 Constitutional: Negative for fever, chills, and weight loss, Eyes: Negative for injury, viki pain, redness, and discharge, ENT: Negative for injury, pain, and discharge, Neck: Negative for injury, pain, and swelling, Cardiovascular: Negative for chest pain, palpitations, and edema, Abdomen/GI: Negative for abdominal pain, nausea, vomiting, diarrhea, and constipation, Back: Negative for injury and pain, : Negative for injury, bleeding, discharge, and swelling, MS/Extremity: Negative for injury and deformity, Skin: Negative for injury, rash, and discoloration, Neuro: Negative for headache, weakness, numbness, tingling, and seizure, Psych: Negative for depression, anxiety, suicide ideation, homicidal ideation, and hallucinations, Allergy/Immunology: Negative for hives, rash, and allergies, Endocrine: Negative for neck swelling, polydipsia, polyuria, polyphagia, and marked weight changes, Hematologic/Lymphatic: Negative for swollen nodes, abnormal bleeding, and unusual bruising, 15:05 Respiratory: Positive for cough, "sounds productive", shortness of breath, on exertion. wheezing, expiratory, 15:05 MS/extremity: Negative for acute changes, Exam: 15:05 Constitutional: This is a well developed, well nourished patient who is awake, alert, viki and in no acute distress. Head/Face: Normocephalic, atraumatic. Eyes: Pupils equal round and reactive to light, extra-ocular motions intact. Lids and lashes normal. Conjunctiva and sclera are non-icteric and not injected. Cornea within normal limits. Periorbital areas with no swelling, redness, or edema. ENT: Nares patent. No nasal discharge, no septal abnormalities noted. Tympanic membranes are normal and external auditory canals are clear. Oropharynx with no redness, swelling, or masses, exudates, or evidence of obstruction, uvula midline. Mucous membranes moist. Neck: Trachea midline, no thyromegaly or masses palpated, and no cervical lymphadenopathy. Supple, full range of motion without nuchal rigidity, or vertebral point tenderness. No Meningismus. Chest/axilla: Normal chest wall appearance and motion. Nontender with no deformity. No lesions are appreciated. Cardiovascular: Regular rate and rhythm with a normal S1 and S2. No gallops, murmurs, or rubs. Normal PMI, no JVD. No pulse deficits. Abdomen/GI: Soft, non-tender, with normal bowel sounds. No distension or tympany. No guarding or rebound. No evidence of tenderness throughout. Back: No spinal tenderness. No costovertebral tenderness. Full range of motion. Male : Normal genitalia with no discharge or lesions. Skin: Warm, dry with normal turgor. Normal color with no rashes, no lesions, and no evidence of cellulitis. MS/ Extremity: Pulses equal, no cyanosis. Neurovascular intact. Full, normal range of motion., bilateral aka Neuro: Awake and alert, GCS 15, oriented to person, place, time, and situation. Cranial nerves II-XII grossly intact. Motor strength 5/5 in all extremities. Sensory grossly intact. Cerebellar exam normal. Normal gait. Psych: Awake, alert, with orientation to person, place and time. Behavior, mood, and affect are within normal limits. 15:05 Respiratory: the patient does not display signs of respiratory distress, Respirations: normal, Breath sounds: decreased breath sounds, that are mild, rhonchi, that are mild, are scattered, stridor, is not appreciated, + upper airway congestion. wheezing: expiratory is heard in the left posterior lower lobe, right posterior middle lobe and right posterior lower lobe, 15:08 Musculoskeletal/extremity: DVT Exam: No signs of deep vein thrombosis. no pain, no viki swelling, no tenderness, negative Homans' sign noted on exam, no appreciated bluish discoloration, no erythema, no increased warmth, Vital Signs: 13:15 BP 140 / 78; Pulse 104; Resp 19; Temp 98.4; Pulse Ox 98% ; Weight 158.76 kg; Height 5 iw ft. 10 in. ; 15:44 BP 131 / 81; Pulse 100; Resp 18; Pulse Ox 98% on R/A; ll1 13:15 Body Mass Index 50.22 (158.76 kg, 177.8 cm) iw MDM: 12:13 Medical Screening Exam initiated viki 15:08 Differential diagnosis: bronchitis, flu, URI. Antibiotic administration: The patient is viki discharged and will get outpatient antibiotics, Levaquin. Differential Diagnosis: Obstructed Airway Bronchitis Influenza Upper Respiratory Infection Sinusitis Pharyngitis Asthma Exacerbation Viral Syndrome Pneumonia Tracheal Injury. Data reviewed: vital signs, nurses notes, lab test result(s), radiologic studies, plain films. Consideration of Admission/Observation Patient was admitted/placed on observation. Escalation of care including admission/observation considered. I considered the following discharge prescriptions or medication management in the emergency department Medications were administered in the Emergency Department. See MAR. Independent interpretation of the following test(s) in the Emergency Department X-Ray: My interpretation is CXR NEG. Test considered but Not performed: Labs: NO CBC , NO COMP MET. Care significantly affected by the following chronic conditions: ASTHMA,ANXIETY. 01/31 13:20 Order name: COVID-19 Ag + Flu A+B Ag; Complete Time: 14:34 iw 01/31 13:20 Order name: Group A Streptococcus Rapid; Complete Time: 14:34 iw 01/31 14:01 Order name: Throat Culture EDTX 01/31 13:20 Order name: CXR XRAY; Complete Time: 14:43 iw Administered Medications: 14:58 Drug: LevOfloxacin PO 750 mg PO once Route: PO; ll1 15:45 Follow up: Response: No adverse reaction ll1 14:58 Drug: predniSONE PO 60 mg PO once Route: PO; ll1 15:45 Follow up: Response: No adverse reaction ll1 14:58 Drug: Levalbuterol Inhalation 3.75 mg Inhalation once Route: Inhalation; ll1 15:45 Follow up: Response: No adverse reaction ll1 14:58 Drug: Ipratropium Inhalation Aerosol 0.5 mg Inhalation once Route: Inhalation; ll1 15:45 Follow up: Response: No adverse reaction ll1 14:59 Drug: Tussionex Pennkinetic ER PO Suspension 5 ml PO once Route: PO; ll1 15:45 Follow up: Response: No adverse reaction ll1 Disposition Summary: 01/31/25 15:16 Discharge Ordered Notes: Location: Home viki Problem: new viki Symptoms: have improved viki Condition: Stable viki Diagnosis - Acute upper respiratory infection, unspecified viki - Cough viki - Moderate persistent asthma viki - Obesity, unspecified viki - Tobacco use viki - Tobacco abuse counseling viki Followup: viki - With: Private Physician - When: 2 - 3 days - Reason: Recheck today's complaints, Continuance of care, Re-evaluation by your physician Followup: viki - With: Kevin Demarco MD - When: 2 - 3 days - Reason: Recheck today's complaints, Continuance of care, Re-evaluation by your physician Discharge Instructions: - Discharge Summary Sheet viki - Obesity, Adult viki - Self-Destructive Behavior viki - Steps to Quit Smoking viki - Health Risks of Smoking viki - Upper Respiratory Infection, Adult viki - Cool Mist Vaporizer viki - Upper Respiratory Infection, Adult, [id number] viki - Steps to Quit Smoking, [id number] viki - Cough, Adult, [id number] viki - Cough, Adult viki Forms: - Medication Reconciliation Form viki - Antibiotic Education viki - Prescription Opioid Use viki - Patient Portal Instructions viki - Leadership Thank You Letter viki - Work release form iw Prescriptions: - albuterol sulfate 90 mcg/actuation Inhalation HFA Aerosol Inhaler - inhale 2 inhalation INHALATION route every 4 to 6 hours as needed for shortness viki of breath or wheezing; 2 unit; Refills: 0, Product Selection Permitted - Tessalon Perles 100 mg Oral capsule - take 2 capsule ORAL route every 8 hours As needed; 30 capsule; Refills: 0, viki Product Selection Permitted - Albuterol Sulfate 2.5 mg /3 mL (0.083 %) Inhalation Solution for Nebulization - inhale 1 unit NEBULIZATION route every 4-6 hours As needed; 36 unit; Refills: viki 0, Product Selection Permitted - Prednisone 20 mg Oral Tablet - take 2 tablets ORAL route once daily for 5 days; 10 tablet; Refills: 0, Product viki Selection Permitted - Guaifenesin AC 10-100 mg/5 mL Oral liquid - take 7.5 milliliter ORAL route every 4 hours As needed; 160 milliliter; viki Refills: 0, Product Selection Permitted - levofloxacin 750 mg Oral tablet - take 1 tablet ORAL route once daily; 7 tablet; Refills: 0, Product Selection viki Permitted Signatures: Dispatcher [employer] EDMS Patrick Ribeiro MD MD cha Williams, Irene, RN RN iw Ethan Tom RN RN ll1 Corrections: (The following items were deleted from the chart) 13:20 13:20 COVID-19 Ag + Flu A+B Ag+[id number].LAB.[id number] ordered. EDMS EDMS 13:20 13:20 Group A Streptococcus Rapid Sc+I.LAB.BRZ ordered. EDMS EDMS
--- NOTE | 2025-01-31 15:16 | ER ---
Nurse's Notes [facility] Name: Niels Butts Age: 29 yrs Sex: Male : 1995 Arrival Date: 01/31/2025 Time: 12:08 Bed 12 Private MD: Diagnosis: Acute upper respiratory infection, unspecified;Cough;Moderate persistent asthma;Obesity, unspecified;Tobacco use;Tobacco abuse counseling Presentation: 01/31 13:15 Chief complaint: Patient states: cough, sore throat , body ramps fro coughing so hard iw for past week. Coronavirus screen: Client presents with at least one sign or symptom that may indicate coronavirus-19. Ebola Screen: No symptoms or risks identified at this time. Initial Sepsis Screen: Does the patient meet any 2 criteria? HR > 90 bpm. Does the patient have a suspected source of infection?. Risk Assessment: Do you want to hurt yourself or someone else? Patient reports no desire to harm self or others. Onset of symptoms was January 24, 2025. 13:15 Method Of Arrival: Ambulatory iw 13:15 Acuity: KATELYNN 3 iw Historical: - Allergies: 13:16 No Known Allergies; iw - PMHx: 13:16 Anxiety; Asthma; iw - PSHx: 13:16 None; iw - Immunization history:: Adult Immunizations up to date. - Infectious Disease History:: Denies. - Social history:: Smoking status: Patient reports the use of cigarette tobacco products, denies chronic smoking, but will smoke occasionally. Screenin:12 [facility] ED Fall Risk Assessment (Adult) History of falling in the last 3 months, ll1 including since admission No falls in past 3 months (0 pts) Confusion or Disorientation No (0 pts) Intoxicated or Sedated No (0 pts) Impaired Gait No (0 pts) Mobility Assist Device Used No (0 pt) Altered Elimination No (0 pt) Score/Fall Risk Level 0 - 2 = Low Risk Maintained a safe environment, Hourly rounding (assess needs \T\ fall precautionary measures) done. Abuse screen: Denies threats or abuse. Nutritional screening: No deficits noted. Tuberculosis screening: No symptoms or risk factors identified. Assessment: 14:11 General: Appears in no apparent distress. Behavior is calm, cooperative, appropriate ll1 for age. General: Reports fatigue for. Pain: Denies pain. Neuro: Reports headache weakness. Respiratory: Reports cough that is. EENT: Reports nasal congestion. Musculoskeletal: Reports body aches. 14:59 Reassessment: No changes from previously documented assessment. Patient and/or family ll1 updated on plan of care and expected duration. Pain level reassessed. Patient is alert, oriented x 3, equal unlabored respirations, skin warm/dry/pink. 15:44 Reassessment: No changes from previously documented assessment. Patient and/or family ll1 updated on plan of care and expected duration. Pain level reassessed. Patient is alert, oriented x 3, equal unlabored respirations, skin warm/dry/pink. Vital Signs: 13:15 BP 140 / 78; Pulse 104; Resp 19; Temp 98.4; Pulse Ox 98% ; Weight 158.76 kg; Height 5 iw ft. 10 in. ; 15:44 BP 131 / 81; Pulse 100; Resp 18; Pulse Ox 98% on R/A; ll1 13:15 Body Mass Index 50.22 (158.76 kg, 177.8 cm) iw ED Course: 12:13 Patient arrived in ED. cj3 12:13 Patrick Ribeior MD is Attending Physician. [facility] 13:16 Triage completed. iw 13:16 Arm band placed on. iw 14:11 Patient placed in an exam room, on a stretcher. ll1 14:12 Patient has correct armband on for positive identification. Bed in low position. ll1 Provided Education on: ER procedures and process. Cardiac monitoring not applicable on this patient. 14:12 No provider procedures requiring assistance completed. Patient did not have IV access ll1 during this emergency room visit. 14:15 CXR XRAY In Process Unspecified. EDMS 14:47 Ethan Tom, IRINA is Primary Nurse. ll1 15:16 Kevin Demarco MD is Referral Physician. viki Administered Medications: 14:58 Drug: LevOfloxacin PO 750 mg PO once Route: PO; ll1 15:45 Follow up: Response: No adverse reaction ll1 14:58 Drug: predniSONE PO 60 mg PO once Route: PO; ll1 15:45 Follow up: Response: No adverse reaction ll1 14:58 Drug: Levalbuterol Inhalation 3.75 mg Inhalation once Route: Inhalation; ll1 15:45 Follow up: Response: No adverse reaction ll1 14:58 Drug: Ipratropium Inhalation Aerosol 0.5 mg Inhalation once Route: Inhalation; ll1 15:45 Follow up: Response: No adverse reaction ll1 14:59 Drug: Tussionex Pennkinetic ER PO Suspension 5 ml PO once Route: PO; ll1 15:45 Follow up: Response: No adverse reaction ll1 Medication: 14:12 VIS not applicable for this client. ll1 Outcome: 14:12 Condition: stable ll1 15:16 Discharge ordered by . viki 15:42 Patient left the ED. iw 15:44 Discharged to home ambulatory, [facility] 15:44 Discharge instructions given to patient, Instructed on discharge instructions, follow up and referral plans. medication usage, Demonstrated understanding of instructions, follow-up care, medications, Prescriptions given X x 6 Signatures: Dispatcher [employer] EDPatrick Torres MD MD cha Williams, Irene, RN Ethan Mcdaniel RN RN [facility]
[2025-01-31 17:15] VITALS: BP 140/78; TEMP 98.4; O2SAT 98
== END 2025-01-31 15:42 | disposition home or self-care (01) ==
LOC: ER 12:08
DX: J06.9 Acute upper respiratory infection, unspecified (principal); J45.40 Moderate persistent asthma, uncomplicated; E66.9 Obesity, unspecified; Z72.0 Tobacco use; Z71.6 Tobacco abuse counseling; Z11.52 Encounter for screening for COVID-19
CPT/HCPCS: 87070; 36415; 71045; 87428; J7512; J7614; J7644